=== PATIENT | female | born 1995 | race African-American/Black ===

== ENCOUNTER 2019-06-03 18:26 | Emergency (ER) | payer MEDICAID ==
[~2019-06-03] VITALS: Ht 172.7 cm; Wt 122.5 kg
[~2019-06-03 18:26] MED LIST: AUGMENTIN 875 M1 TAB PO; AUGMENTIN 875875 MG PO; CLARITIN10 MG PO; FLONASE 0.05% 121 EA NAS; LIDEX 0.05% CRE15 GM T; MOTRIN800 MG PO; NKHM; PEN-VEE K500 MG PO; PREDNICOT10 MG PO; PREDNISONE10 MG PO; TESSALON PERLE200 MG PO; ZITHROMAX Z PA250 MG PO
[2019-06-03 18:27] VITALS: BP 117/67
[2019-06-03] MEDS ORDERED: TESSALON PERLE100 M1 PO (20:05)
[2019-06-03] MEDS ORDERED: PREDNISONE20 M1 PO (20:05)
== END 2019-06-03 20:14 | disposition home or self-care (01) ==
LOC: ED 18:26
DX: J40 Bronchitis, not specified as acute or chronic (principal); Z79.899 Other long term (current) drug therapy

== ENCOUNTER 2020-01-05 08:28 | Emergency (ER) | payer MEDICAID ==
[~2020-01-05] VITALS: Ht 172.7 cm; Wt 127.0 kg
[~2020-01-05 08:28] MED LIST changes: +PREDNISONE20 M1 PO; +TESSALON PERLE100 M1 PO
[2020-01-05 08:33] VITALS: BP 136/66
[2020-01-05] MEDS ORDERED: AMOXICILLIN500 M2 PO (09:22)
== END 2020-01-05 09:33 | disposition home or self-care (01) ==
LOC: ED 08:28
DX: J02.0 Streptococcal pharyngitis (principal)